=== PATIENT | male | born 1980 | race Caucasian/White ===

== ENCOUNTER 2016-08-21 10:02 | Emergency (ER) | payer OTHER ==
[2015-12-05 06:58] VITALS: BMI 30.8
[~2016-08-21 10:02] MED LIST: ACETAMINOPHEN500 M1 PO; DILAUDID2 MG PO; MELATONIN 3 MG1 TAB PO; MOTRIN600 MG PEG
[2016-08-21 10:30] LABS: BASOPHILS 0.1 % (0-2); EOSINOPHILS 2.2 % (0-7); HEMATOCRIT 48.6 % (42.0-54.0); HEMOGLOBIN 16.1 g/dL (13.5-17.5); IMMATURE GRANULOCYTES 0.3 % (0-5); LYMPHOCYTES 18.9 % (15-50); MCH 28.8 pg (26.0-34.0); MCHC 33.1 g/dL (31.0-37.0); MCV 86.9 fL (80.0-100.0); MEAN PLATELET VOLUME 9.4 fL (7.4-10.4); MONOCYTES 8.6 % (2-11); NEUTROPHILS 69.9 % (40-80); PLATELET COUNT 284 10x3/uL (130-400); RBC 5.59 10x6/uL (4.20-6.10); RDW 14.1 % (11.5-14.5); WBC 9.1 10x3/uL (4.8-10.8)
[2016-08-21 10:53] LABS: ALBUMIN 3.6 g/dL (3.4-5.0); ALKALINE PHOSPHATASE 57 U/L (46-116); ALT (SGPT) 22 U/L (10-68); CALC OSMOLALITY 278 mosm/kg (275-300); CHLORIDE - SERUM 100 mmol/L (98-107); CREATININE - SERUM 0.9 mg/dL (0.6-1.3); GLUCOSE 132 mg/dL (74-106); POTASSIUM - SERUM 3.8 mmol/L (3.5-5.1); PROTEIN - SERUM 7.4 g/dL (6.4-8.2); SODIUM 139 mmol/L (136-145); UREA NITROGEN 10 mg/dL (7-18); eGFR NON AFRICAN AMERICAN > 90 mL/min (90-120)
[2016-08-21 10:54] LABS: AMYLASE - SERUM 30 U/L (25-115); LIPASE 153 U/L (73-393)
[2016-08-21 11:16] LABS: APPEARANCE CLEAR (CLEAR); BILIRUBIN NEGATIVE (NEGATIVE); COLOR YELLOW (YELLOW); GLUCOSE 50 mg/dL (NEGATIVE); KETONE NEGATIVE (NEGATIVE); LEUKOCYTE ESTERASE NEGATIVE (NEGATIVE); NITRITE NEGATIVE (NEGATIVE); PROTEIN NEGATIVE (NEGATIVE); SPECIFIC GRAVITY 1.015 (1.005-1.020); UROBILINOGEN NORMAL (NORMAL)
== END 2016-08-21 11:44 | disposition home or self-care (01) ==
LOC: D.ER 10:02
PROVIDERS: Family Medicine; Nurse Practitioner Family
DX: K52.9 Noninfective gastroenteritis and colitis, unspecified (principal); R10.9 Unspecified abdominal pain

== ENCOUNTER 2016-09-04 08:36 | Emergency (ER) | payer OTHER ==
[2015-12-05 06:58] VITALS: BMI 30.8
[2016-09-04 09:51] LABS: BASOPHILS 0.5 % (0-2); EOSINOPHILS 4.2 % (0-7); HEMATOCRIT 50.2 % (42.0-54.0); HEMOGLOBIN 16.3 g/dL (13.5-17.5); IMMATURE GRANULOCYTES 0.2 % (0-5); LYMPHOCYTES 23.9 % (15-50); MCHC 32.5 g/dL (31.0-37.0); MCV 89.3 fL (80.0-100.0); MEAN PLATELET VOLUME 9.4 fL (7.4-10.4); MONOCYTES 12.5 % (2-11); NEUTROPHILS 58.7 % (40-80); PLATELET COUNT 263 10x3/uL (130-400); RBC 5.62 10x6/uL (4.20-6.10); RDW 14.6 % (11.5-14.5); WBC 8.5 10x3/uL (4.8-10.8)
[2016-09-04 10:17] LABS: ALBUMIN 3.8 g/dL (3.4-5.0); ALKALINE PHOSPHATASE 53 U/L (46-116); ALT (SGPT) 30 U/L (10-68); CALC OSMOLALITY 277 mosm/kg (275-300); CARBON DIOXIDE 32.7 mmol/L (21.0-32.0); CHLORIDE - SERUM 100 mmol/L (98-107); GLUCOSE 93 mg/dL (74-106); POTASSIUM - SERUM 4.1 mmol/L (3.5-5.1); SODIUM 139 mmol/L (136-145); UREA NITROGEN 13 mg/dL (7-18); eGFR NON AFRICAN AMERICAN 89 mL/min (90-120)
== END 2016-09-04 16:56 | disposition short-term general hospital (02) ==
LOC: D.ER 08:36
PROVIDERS: Emergency Medicine
DX: J44.1 Chronic obstructive pulmonary disease with (acute) exacerbation (principal)

== ENCOUNTER 2017-03-22 12:54 | Emergency (ER) | payer OTHER ==
[2015-12-05 06:58] VITALS: BMI 30.8
[2017-03-22 13:40] LABS: BASOPHILS 0.1 % (0-2); EOSINOPHILS 0.8 % (0-7); HEMATOCRIT 50.2 % (42.0-54.0); HEMOGLOBIN 16.6 g/dL (13.5-17.5); IMMATURE GRANULOCYTES 0.3 % (0-5); LYMPHOCYTES 9.3 % (15-50); MCH 29.6 pg (26.0-34.0); MCHC 33.1 g/dL (31.0-37.0); MCV 89.5 fL (80.0-100.0); MEAN PLATELET VOLUME 9.3 fL (7.4-10.4); MONOCYTES 9.1 % (2-11); NEUTROPHILS 80.4 % (40-80); PLATELET COUNT 295 10x3/uL (130-400); RBC 5.61 10x6/uL (4.20-6.10); RDW 13.3 % (11.5-14.5); WBC 14.9 10x3/uL (4.8-10.8)
[2017-03-22 14:08] LABS: ALBUMIN 3.9 g/dL (3.4-5.0); ALKALINE PHOSPHATASE 55 U/L (46-116); ALT (SGPT) 25 U/L (10-68); AMYLASE - SERUM 45 U/L (25-115); BILIRUBIN - TOTAL 0.41 mg/dL (0.2-1.3); CALC OSMOLALITY 278 mosm/kg (275-300); CALCIUM 9.2 mg/dL (8.5-10.1); CARBON DIOXIDE 29.4 mmol/L (21.0-32.0); CHLORIDE - SERUM 102 mmol/L (98-107); GLUCOSE 106 mg/dL (74-106); LIPASE 217 U/L (73-393); POTASSIUM - SERUM 4.5 mmol/L (3.5-5.1); PROTEIN - SERUM 7.3 g/dL (6.4-8.2); SODIUM 139 mmol/L (136-145); UREA NITROGEN 16 mg/dL (7-18); eGFR NON AFRICAN AMERICAN 89 mL/min (90-120)
[2017-03-22 14:42] LABS: APPEARANCE CLEAR (CLEAR); BILIRUBIN NEGATIVE (NEGATIVE); COLOR YELLOW (YELLOW); GLUCOSE NEGATIVE (NEGATIVE); KETONE NEGATIVE (NEGATIVE); NITRITE NEGATIVE (NEGATIVE); PROTEIN NEGATIVE (NEGATIVE); UROBILINOGEN NORMAL (NORMAL)
== END 2017-03-22 16:17 | disposition home or self-care (01) ==
LOC: D.ER 12:54
PROVIDERS: Family Medicine
DX: K52.9 Noninfective gastroenteritis and colitis, unspecified (principal); K50.90 Crohn's disease, unspecified, without complications; F17.200 Nicotine dependence, unspecified, uncomplicated

== ENCOUNTER → 2018-09-13 16:54 | Outpatient (CLI) | payer OTHER ==
[2015-12-05 06:58] VITALS: BMI 30.8
== END | disposition home or self-care (01) ==
LOC: D.LABREF 16:54
PROVIDERS: ATTEND Orthopaedic Surgery
DX: M17.11 Unilateral primary osteoarthritis, right knee (principal); Z11.8 Encounter for screening for other infectious and parasitic diseases

== ENCOUNTER 2018-09-14 11:35 | Inpatient (IN) | payer MEDICARE ==
[~2018-09-14] VITALS: Ht 190.5 cm; Wt 136.4 kg
[2018-10-11] MEDS ORDERED: NEURONTIN 300300 MG PO (15:32)
[2018-10-11] MEDS ORDERED: DICLOFENAC SODI50 MG PO (15:33)
[2018-10-11] MEDS ORDERED: ULTRAM50 MG PO (15:34)
[2018-10-11] MEDS ORDERED: ALBUTEROL SULF8.5 GM INH (15:47)
[2018-10-12 10:49] LABS: BASOPHILS 0.4 % (0-2); EOSINOPHILS 1.6 % (0-7); HEMATOCRIT 47.1 % (42.0-54.0); HEMOGLOBIN 16.1 g/dL (13.5-17.5); IMMATURE GRANULOCYTES 0.6 % (0-5); MCH 30.1 pg (26.0-34.0); MCHC 34.2 g/dL (31.0-37.0); MCV 88.2 fL (80.0-100.0); MEAN PLATELET VOLUME 9.2 fL (7.4-10.4); MONOCYTES 11.4 % (2-11); PLATELET COUNT 275 10x3/uL (130-400); RBC 5.34 10x6/uL (4.20-6.10); RDW 13.1 % (11.5-14.5); WBC 8.3 10x3/uL (4.8-10.8)
[2018-10-12 11:08] LABS: CALC OSMOLALITY 278 mosm/kg (275-300); CALCIUM 9.2 mg/dL (8.5-10.1); CARBON DIOXIDE 30.3 mmol/L (21.0-32.0); CHLORIDE - SERUM 103 mmol/L (98-107); CREATININE - SERUM 0.9 mg/dL (0.6-1.3); GLUCOSE 93 mg/dL (74-106); POTASSIUM - SERUM 4.6 mmol/L (3.5-5.1); SODIUM 139 mmol/L (136-145); UREA NITROGEN 15 mg/dL (7-18); eGFR NON AFRICAN AMERICAN > 90 mL/min (90-120)
[2018-10-12 11:11] LABS: APPEARANCE HAZY (CLEAR); BILIRUBIN NEGATIVE (NEGATIVE); COLOR YELLOW (YELLOW); GLUCOSE 250 mg/dL (NEGATIVE); KETONE NEGATIVE (NEGATIVE); NITRITE NEGATIVE (NEGATIVE); PROTEIN NEGATIVE (NEGATIVE); SPECIFIC GRAVITY 1.025 (1.005-1.020); UROBILINOGEN NORMAL (NORMAL)
[2018-10-12 11:19] LABS: APTT 28.1 SECONDS (22.8-39.4); INR 0.97 (0.85-1.17); PROTIME 12.4 SECONDS (11.6-15.0)
[2018-10-17 06:25] VITALS: BP 117/80; BMI 37.5
--- NOTE | 2018-10-17 10:44 | NUR ---
I ASKED PT IF HE WEARS A CPAP AT HOME HE SAYS "NO I JUST WEAR OXYGEN AT 4L WHEN I SLEEP". I UPED PT OXYGEN TO 4L PER NC AT THIS TIME. WILL CONTINUE TO MONTIOR PT OXYGEN
--- NOTE | 2018-10-17 11:06 | NUR ---
TALKED WITH PT ABOUT DEEP BREATHING BECASUE HIS OXYGEN SATURATION IS LOWER THEN WHAT WE LIKE TO HAVE IT. PT VOICED "O MY OXYGEN IS ALWASY LOW, ITS USUALLY IN THE 80'S AT HOME EVEN ON OXYGEN". WILL CONTINUE TO WATCH AND MONITOR PT. HE IS SITTING UP AND TALKING WHOLE CONVERSTAIONS AND IS A&OX4.
--- NOTE | 2018-10-17 11:30 | NUR ---
REC'D TO ROOM 2238 AWAKE AND ALERT. RESP EVEN AND UNLABORED WITH NO DISTRESS NOTED. HAS O2 IN USE VIA N/C @ 5 L/M. DENIES ANY PAIN OR DISCOMFORT AT THIS TIME. CAN VOICE NEEDS AND WANTS WITH NONE VOICE. NITHIN WRAP CLEAN DRY AND INTACT TO RIGHT KNEE. MOTHER AT BEDSIDE. C/L IN REACH.
[2018-10-17 11:39] VITALS: BP 120/76
[2018-10-17 12:18] VITALS: BP 104/56
--- NOTE | 2018-10-17 15:05 | NUR ---
C/O PAIN RATING 9/10 ON PAIN SCALE TO RIGHT KNEE CRYPTOGRAPHY TEACHER STARTED AT THIS TIME. C/L IN REACH AT BEDSIDE.
[2018-10-17 15:53] VITALS: BP 104/56
--- NOTE | 2018-10-17 17:08 | NUR ---
I have reviewed this patient and I concur with the Shift Assessment completed by the Licensed Practical Nurse today this shift.
--- NOTE | 2018-10-17 19:50 | NUR ---
PATIENT LAYING IN BED. PATIENT HAS CPM ON AND IS SET TO COME OFF OF IT AT 2200. PATIENT HAS NO COMPLAINTS AT THIS TIME. NO DISTRESS NOTED.
[2018-10-17 20:00] VITALS: BP 110/68
--- NOTE | 2018-10-18 01:59 | NUR ---
PATIENT LAYING IN BED, EYES CLOSED, CHEST RISING AND FALLING. NO DISTRESS NOTED.
--- NOTE | 2018-10-18 04:34 | NUR ---
I have reviewed this patient and I concur with the Shift Assessment completed by the Licensed Practical Nurse today this shift.
[2018-10-18 05:31] VITALS: BP 110/68; Ht 190.5 cm; Wt 136.4 kg
--- NOTE | 2018-10-18 05:55 | NUR ---
PATIENT SITTING UP IN BED. NO COMPLAINTS AT THIS TIME. NO DISTRESS NOTED.
[2018-10-18 06:33] VITALS: BP 118/70
[2018-10-18 06:49] LABS: HEMATOCRIT 41.9 % (42.0-54.0); HEMOGLOBIN 14.2 g/dL (13.5-17.5); MCH 29.9 pg (26.0-34.0); MCHC 33.9 g/dL (31.0-37.0); MCV 88.2 fL (80.0-100.0); MEAN PLATELET VOLUME 9.4 fL (7.4-10.4); RBC 4.75 10x6/uL (4.20-6.10); WBC 13.1 10x3/uL (4.8-10.8)
--- NOTE | 2018-10-18 07:39 | NUR ---
SITTING IN BED WITH CPM MACHINE IN PLACE. STATES HAS ABOUT AN HOUR LEFT ON CPM MACHINE. ALERT AND ORIENTED X 3. LUNGS CLEAR BILATERALLY IN ALL CARLISLE. HEART SOUNDS S1 AND S2 HEARD IN ALL CARLISLE. BOWEL SOUNDS ACTIVE X 4. SKIN INTACT WITHOUT REDNESS. INCISION TO RIGHT KNEE COVERED WITH DRSG AND NITHIN BANDAGE C/D/I. [address] AT 5L. DENIES PAIN. DENIES NEEDS. BED LOW. CALL PENA AND PERSONAL ITEMS IN REACH. WILL CONTINUE TO MONITOR.
[2018-10-18 08:14] VITALS: BP 115/62
--- NOTE | 2018-10-18 10:39 | NUR ---
SITTING IN CHAIR AT BEDSIDE PER PT. DENIES NEEDS. DENIES PAIN. WILL CONTINUE TO MONITOR.
[2018-10-18 11:46] VITALS: BP 105/61
--- NOTE | 2018-10-18 14:21 | NUR ---
SITTING IN CHAIR AT BEDSIDE. DENIES NEEDS.
--- NOTE | 2018-10-18 14:30 | MORECARE ---
CASE MANAGEMENT DISCHARGE SUMMARY PATIENT: CARLITOS MARIE UNIT: [id number] ADM DATE: 10/17/18 AGE: 38 : 79 SEX: M ROOM/BED: D.2238 AUTHOR: LEW WALDROP PHYSICIAN: REFERRING PHYSICIAN: AVNI KENDRICK MD DATE OF SERVICE: 10/18/18 Discharge Plan Patient Name: CARLITOS MARIE Facility: [facility]:[place] : 1980 Planned Disposition: Inpatient Rehab Anticipated Discharge Date: Discharge Date: Expected LOS: Initial Reviewer: [email or web address] Initial Review Date: 10/17/2018 Generated: 10/18/18 3:30 pm Patient Name: CARLITOS MARIE Page [id number] at 1430 All edits/amendments must be made on the electronic document DICTATION DATE: 10/18/18 1430 BELLMAN CAPTAIN: NITIN 10/18/18 1430 RPT#: [id number] DC DATE: STATUS: ADM IN [facility] [address] [place] [address] END OF REPORT
--- NOTE | 2018-10-18 14:38 | MORECARE ---
CASE MANAGEMENT DISCHARGE SUMMARY PATIENT: CARLITOS MARIE UNIT: [id number] ADM DATE: 10/17/18 AGE: 38 : 78 SEX: M ROOM/BED: D.2238 AUTHOR: BENJIE,DOC PHYSICIAN: REFERRING PHYSICIAN: AVNI KENDRICK MD DATE OF SERVICE: 10/18/18 Discharge Plan Patient Name: CARLITOS MARIE Facility: [facility]:[place] : 1980 Planned Disposition: Inpatient Rehab Anticipated Discharge Date: Discharge Date: Expected LOS: Initial Reviewer: [email or web address] Initial Review Date: 10/17/2018 Generated: 10/18/18 3:38 pm Comments DCP- Discharge Planning Updated by [email or web address]: Trudi Peña on 10/18/18 1:[address] Patient Name: CARLITOS MARIE Admission Status: Elective Accout number: [id number] Admission Date: 10-17-2018 : 1980 Admission Diagnosis: Attending: AVNI KENDRICK Current LOS: 1 Anticipated DC Date: Planned Disposition: Inpatient Rehab Primary Insurance: MEDICARE PART A ONLY Discharge Planning Comments: CM met with patient to complete initial dc planning assessment. CM educated patient on the CM role and verbal consent given by patient to complete assessment. Patient lives at home with his mother where he is independent with his care. At discharge patient would like to go to inpatient rehab at [facility] and feels this is a safe discharge. Patient sees the [facility] and has Home O2 that he wears at night through them. Referral sent to [facility] inpatient rehab and Angelita came up and assessed the patient. Will wait for auth, anticipate DC tomorrow if accepted and stable. Patient denied known discharge needs at this time. CM will continue to follow and will assist as needed with dc plans/needs. Grounds Manager: Trudi Peña DCPIA - Discharge Planning Initial Assessment Updated by [email or web address]: Trudi Peña on 10/18/18 2:31 pm * Is the patient Alert and Oriented? Yes * How many steps to enter\exit or inside your home? RAMP * PCP [facility]- [place] * Pharmacy [address] * Preadmission Environment Home with Family * ADLs Independent * Equipment Oxygen * List name and contact numbers for known caregivers / representatives who currently or will assist patient after discharge: TRINA (MOTHER) [phone] * Verbal permission to speak to the caregivers and representatives has been obtained from the patient. Yes * Community resources currently utilized None * Additional services required to return to the preadmission environment? Yes * Can the patient safely return to the preadmission environment? No * Has this patient been hospitalized within the prior 30 days at any hospital? No Last DP export: 10/18/18 1:30 p Patient Name: CARLITOS MARIE Page [phone] at 1438 All edits/amendments must be made on the electronic document DICTATION DATE: 10/18/181436 DITCH REPAIRER: NITIN 10/18/181436 RPT#: [id number] DC DATE: STATUS: ADM IN [facility] [address] [place] [address] END OF REPORT
--- NOTE | 2018-10-18 15:00 | OP ---
PATIENT NAME: CARLITOS MRAIE MEDICAL RECORD: [id number] :[birth year] LOCATION:D.MS [id number] ADMISSION DATE:10/17/18 SURGEON: AVNI KENDRICK MD DATE OF OPERATION: 10/17/2018 PREOPERATIVE DIAGNOSIS: Posttraumatic arthritis of the right knee. POSTOPERATIVE DIAGNOSIS: Posttraumatic arthritis of the right knee. PROCEDURE: Right total knee arthroplasty. SURGEON: Avni Kendrick MD ASSEMBLER CARDS AND ANNOUNCEMENTS: Jacqueline. INTRAOPERATIVE COMPLICATIONS: None. 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 The patient did have an ACL reconstruction and it worked to stabilize him. However, he did develop further posttraumatic osteoarthritis as was explained to him prior to his ACL reconstruction. Fortunately, the patient's patellofemoral joint was excellent and he had excellent bone at 38 for press fit arthroplasty. OPERATIVE SUMMARY IN DETAIL: After obtaining the appropriate preoperative orthopedic surgery consent as well as anesthetic consultation, evaluation and clearance, the patient was brought to the operating room and placed on the operating table in supine position. After general laryngeal mask airway was administered, tourniquet was placed on the proximal aspect of the right lower extremity. Right lower extremity was then prepped and draped in routine sterile fashion. The leg was elevated and exsanguinated. Tourniquet was inflated to 350 mmHg. At this point, a timeout was taken and agreed upon by all. A midline incision was taken down for paramedian arthrotomy. Paramedian arthrotomy was undertaken. The patella was everted, distal femur was exposed. The toe was evaluated and found to be pristine. Soft tissue excision was then followed by creation of intramedullary guide hole for intramedullary guided distal femoral cuts. Distal femur was cut and the proximal tibia exposed. Proximal tibia was likewise cut using intramedullary guidance. Measurements were taken. Distal chamfer cuts were taken. Trial was put into place and taken through range of motion and found to be stable in all planes. Distal femoral preparations were followed by proximal tibial preparations. Wound was copiously irrigated. The proximal tibia and distal femur were put in place with excellent fit for the press-fit. A size 11 polyethylene was placed with a #6 femur, 6 tibial baseplate. This was taken through a range of motion again found to be stable in all planes. Wound was copiously irrigated and filled with a gram of vancomycin and a gram of tobramycin. Paramedian arthrotomy was closed with #2 Ethibond by Niko Phillips along with skin closure #1 Vicryl, 2-0 Vicryl, and skin herbert again by Niko Phillips. Sterile dressings were applied. The patient was awakened and taken to the recovery room in stable condition. All final needle and sponge counts were correct. TRANSINT:[id number] Voice Confirmation ID: [id number] DOCUMENT ID: [id number] OPERATIVE REPORT [id number] CARLITOS MARIE MD, AVNI JEFFRIES at 1500 CC: [id number] DICTATION DATE: 10/18/18931 LIVING COACH: 10/18/18 1104 ADM IN [place] [id number] [place] [id number]
--- NOTE | 2018-10-18 16:52 | NUR ---
SITTING IN BED. DENIES NEEDS. WILL CONTINUE TO MONITOR.
[2018-10-18 17:00] VITALS: BP 139/70
--- NOTE | 2018-10-18 18:25 | NUR ---
PLACED ON CPM. REQUESTED AND GIVEN PRN TORADOL.
[2018-10-18 20:00] VITALS: BP 121/62
--- NOTE | 2018-10-18 21:07 | NUR ---
LYING QUEITLY WITH NO DISTRESS NOTED. CPM IN PROGRESS AT THIS TIME. NITHIN WRAP TO RIGHT KNEE WIHTOUT DRAINAGE NOTED. SL TO LFA WITHOUT REDNESS OR EDEMA CL IN REACH
--- NOTE | 2018-10-19 03:57 | NUR ---
I have reviewed this patient and I concur with the Shift Assessment completed by the Licensed Practical Nurse today this shift.
[2018-10-19 04:00] VITALS: BP 165/58
[2018-10-19 05:41] LABS: HEMATOCRIT 41.3 % (42.0-54.0); HEMOGLOBIN 13.7 g/dL (13.5-17.5); MCH 29.4 pg (26.0-34.0); MCHC 33.2 g/dL (31.0-37.0); MCV 88.6 fL (80.0-100.0); MEAN PLATELET VOLUME 9.3 fL (7.4-10.4); RBC 4.66 10x6/uL (4.20-6.10); RDW 13.5 % (11.5-14.5); WBC 11.4 10x3/uL (4.8-10.8)
--- NOTE | 2018-10-19 08:04 | NUR ---
RESTING IN BED USING CPM. ALERT AND ORIENTED X 3. LUNGS CLEAR BILATERALLY IN ALL CARLISLE. HEART SOUNDS S1 AND S2 HEARD IN ALL CARLISLE. BOWEL SOUNDS ACTIVE X 4. DRSG IN PLACE TO RIGHT KNEE C/D/I. SKIN OTHERWISE INTACT WITHOUT REDNESS. DENIES NEEDS. BED LOW. CALL PENA AND PERSONAL ITEMS IN REACH. WILL CONTINUE TO MONITOR.
[2018-10-19] MEDS ORDERED: ELIQUIS2.5 MG PO (09:03)
[2018-10-19] MEDS ORDERED: DILAUDID2 MG PO (09:05)
[2018-10-19 09:12] VITALS: BP 116/68
--- NOTE | 2018-10-19 09:33 | MORECARE ---
CASE MANAGEMENT DISCHARGE SUMMARY PATIENT: CARLITOS MARIE UNIT: [id number] ADM DATE: 10/17/18 AGE: 38 : 78 SEX: M ROOM/BED: D.2238 AUTHOR: BENJIE,DOC PHYSICIAN: REFERRING PHYSICIAN: AVNI KENDRICK MD DATE OF SERVICE: 10/19/18 Discharge Plan Patient Name: CARLITOS MARIE Facility: [facility]:[place] : 1980 Planned Disposition: Inpatient Rehab Anticipated Discharge Date: Discharge Date: Expected LOS: Initial Reviewer: [email or web address] Initial Review Date: 10/17/2018 Generated: 10/19/18 10:33 am Comments DCP- Discharge Planning Updated by [email or web address]: Anitha Strange on 10/19/18 8:[address] I have faxed an update including comorbidities to [facility] and spoke to Mera, she will let Angelita know. I have informed her that he is ready for discharge. CM will continue to follow and assist with discharge planning/needs. DCP- Discharge Planning Updated by [id number]: Trudi Peña on 10/18/18 1:[address] Patient Name: CARLITOS MARIE Admission Status: Elective Accout number: [id number] Admission Date: 10-17-2018 : 1980 Admission Diagnosis: Attending: AVNI KENDRICK Current LOS: 1 Anticipated DC Date: Planned Disposition: Inpatient Rehab Primary Insurance: MEDICARE PART A ONLY Discharge Planning Comments: CM met with patient to complete initial dc planning assessment. CM educated patient on the CM role and verbal consent given by patient to complete assessment. Patient lives at home with his mother where he is independent with his care. At discharge patient would like to go to inpatient rehab at [facility] and feels this is a safe discharge. [facility] them. Referral sent to [facility] inpatient rehab and Angelita came up and assessed the patient. Will wait for auth, anticipate DC tomorrow if accepted and stable. Patient denied known discharge needs at this time. CM will continue to follow and will assist as needed with dc plans/needs. Keyliner: Trudi Peña DCPIA - Discharge Planning Initial Assessment Updated by [email or web address]: Trudi Peña on 10/18/18 2:31 pm * Is the patient Alert and Oriented? Yes * How many steps to enter\exit or inside your home? RAMP * PCP [facility] * Pharmacy [address] * Preadmission Environment Home with Family * ADLs Independent * Equipment Oxygen * List name and contact numbers for known caregivers / representatives who currently or will assist patient after discharge: TRINA (MOTHER) [phone] * Verbal permission to speak to the caregivers and representatives has been obtained from the patient. Yes * Community resources currently utilized None * Additional services required to return to the preadmission environment? Yes * Can the patient safely return to the preadmission environment? No * Has this patient been hospitalized within the prior 30 days at any hospital? No External Providers External Provider: [facility] Contact Date: Service Request Date: Service Type: Resolution: Reviewer: Comments: Last DP export: 10/18/18 1:38 p Patient Name: CARLITOS MARIE Page [phone] at 0933 All edits/amendments must be made on the electronic document DICTATION DATE: 10/19/18932 TRANSIT MIXER DRIVER: NITIN 10/19/18932 RPT#: [id number] DC DATE: STATUS: ADM IN [facility] [address] [place] [address] END OF REPORT
[2018-10-19 12:09] VITALS: BP 128/70
--- NOTE | 2018-10-19 13:26 | NUR ---
SITTING IN CHAIR AT BEDSIDE. DENIES NEEDS. WILL CONTINUE TO MONITOR.
--- NOTE | 2018-10-19 14:12 | NUR ---
REQUESTED AND GIVEN ICE PACKS FOR LEG.
--- NOTE | 2018-10-19 14:36 | MORECARE ---
CASE MANAGEMENT DISCHARGE SUMMARY PATIENT: CARLITOS MARIE UNIT: [id number] ADM DATE: 10/17/18 AGE: 38 : [birth year] SEX: M ROOM/BED: D.2238 AUTHOR: BENJIE,LEW PHYSICIAN: REFERRING PHYSICIAN: AVNI KENDRICK MD DATE OF SERVICE: 10/19/18 Discharge Plan Patient Name: CARLITOS MARIE Facility: [facility]:[place] : 1980 Planned Disposition: Inpatient Rehab Anticipated Discharge Date: Discharge Date: Expected LOS: Initial Reviewer: [email or web address] Initial Review Date: 10/17/2018 Generated: 10/19/18 3:36 pm Comments DCP- Discharge Planning Updated by [email or web address]: Anitha Krishnamurthyyimi on 10/19/18 1:[address] Mera from [facility] states that patient has been accepted and will pick him up between 3:30 and 4. I have informed patient and his mom (she is in the room). I informed talent coordinator (Francia) and primary nurse (Kim). Discharging today to [facility] inpatient rehab. DCP- Discharge Planning Updated by [email or web address]: Anitha Alexandr on 10/19/18 8:[address] I have faxed an update including comorbidities to [facility] and spoke to Mera, she will let Angelita know. I have informed her that he is ready for discharge. CM will continue to follow and assist with discharge planning/needs. DCP- Discharge Planning Updated by [email or web address]: Trudi Peña on 10/18/18 1:[address] Patient Name: CARLITOS MARIE Admission Status: Elective Accout number: [id number] Admission Date: 10-17-2018 : 1980 Admission Diagnosis: Attending: AVNI KENDRICK Current LOS: 1 Anticipated DC Date: Planned Disposition: Inpatient Rehab Primary Insurance: MEDICARE PART A ONLY Discharge Planning Comments: CM met with patient to complete initial dc planning assessment. CM educated patient on the CM role and verbal consent given by patient to complete assessment. Patient lives at home with his mother where he is independent with his care. At discharge patient would like to go to inpatient rehab at [facility] and feels this is a safe discharge. [facility] at [facility] through them. Referral sent to [facility] inpatient rehab and Angelita came up and assessed the patient. Will wait for auth, anticipate DC tomorrow if accepted and stable. Patient denied known discharge needs at this time. CM will continue to follow and will assist as needed with dc plans/needs. Hospice Care Transitions Coordinator: Trudi Peña DCPIA - Discharge Planning Initial Assessment Updated by [email or web address]: Trudi Peña on 10/18/18 2:31 pm * Is the patient Alert and Oriented? Yes * How many steps to enter\exit or inside your home? RAMP * PCP [facility]- [place] * Pharmacy [address] * Preadmission Environment Home with Family * ADLs Independent * Equipment Oxygen * List name and contact numbers for known caregivers / representatives who currently or will assist patient after discharge: TRINA (MOTHER) [phone] * Verbal permission to speak to the caregivers and representatives has been obtained from the patient. Yes * Community resources currently utilized None * Additional services required to return to the preadmission environment? Yes * Can the patient safely return to the preadmission environment? No * Has this patient been hospitalized within the prior 30 days at any hospital? No Last DP export: 10/19/18 8:33 a Patient Name: CARLITOS MARIE Page 10344 at 1436 All edits/amendments must be made on the electronic document DICTATION DATE: 10/19/18 143 FOREIGN CAR MECHANIC: NITIN 10/19/18 1435 RPT#: [id number] DC DATE: STATUS: ADM IN [facility] [address] [place] [address] END OF REPORT
--- NOTE | 2018-10-19 14:52 | NUR ---
DISCHARGE EDUCATION PROVIDED BOTH WRITTEN AND VERBAL. PATIENT AND MOM AT BEDSIDE VERBALIZED UNDERSTANDING. DENIES FURTHER QUESTIONS. NEW DRSG GIVEN FOR KNEE DRSG CHANGE IN 7 DAYS. IV REMOVED FROM LEFT HAND WITH TIP INTACT. DENIES FURTHER NEEDS. WILL DISCHARGE TO [facility] WHEN TRANSPORT ARRIVES.
--- NOTE | 2018-10-19 15:34 | NUR ---
REPORT CALLED TO NURSE AT [facility].
--- NOTE | 2018-10-19 17:53 | NUR ---
OT NOTE: PT COMPLETED SIT TO STAND WITH SBA. PT COMPLETED ADL MOB WITH SBA. PT COMPLETED TOILETING TASKS WITH SBA. PT COMPLETED HYGIENE TASKS WITH SBA. THANK YOU, MERCEDEZ CARUSO
--- NOTE | 2018-10-20 17:17 | MORECARE ---
CASE MANAGEMENT DISCHARGE SUMMARY PATIENT: CARLITOS MARIE UNIT: [id number] ADM DATE: 10/17/18 AGE: 38 : 78 SEX: M ROOM/BED: D.2238 AUTHOR: BENJIE,DOC PHYSICIAN: REFERRING PHYSICIAN: AVNI KENDRICK MD DATE OF SERVICE: 10/20/18 Discharge Plan Patient Name: CARLITOS MARIE Facility: [facility]:[place] : 1980 Planned Disposition: Inpatient Rehab Anticipated Discharge Date: Discharge Date: 10/19/2018 Expected LOS: 0 Initial Reviewer: [email or web address] Initial Review Date: 10/17/2018 Generated: 10/20/18 6:17 pm Comments DCP- Discharge Planning Updated by [email or web address]: Anitha Krishnamurthyyimi on 10/19/18 1:[address] Mera from [facility] states that patient has been accepted and will pick him up between 3:30 and 4. I have informed patient and his mom (she is in the room). I informed gravity flow irrigator (Francia) and primary nurse (Kim). Discharging today to [facility] inpatient rehab. DCP- Discharge Planning Updated by [email or web address]: Anitha Alexandr on 10/19/18 8:[address] I have faxed an update including comorbidities to [facility] and spoke to Mera, she will let Angelita know. I have informed her that he is ready for discharge. CM will continue to follow and assist with discharge planning/needs. DCP- Discharge Planning Updated by [email or web address]: Trudi Peña on 10/18/18 1:[address] Patient Name: CARLITOS MARIE Admission Status: Elective Accout number: [id number] Admission Date: 10-17-2018 : 1980 Admission Diagnosis: Attending: AVNI KENDRICK Current LOS: 1 Anticipated DC Date: Planned Disposition: Inpatient Rehab Primary Insurance: MEDICARE PART A ONLY Discharge Planning Comments: CM met with patient to complete initial dc planning assessment. CM educated patient on the CM role and verbal consent given by patient to complete assessment. Patient lives at home with his mother where he is independent with his care. At discharge patient would like to go to inpatient rehab at [facility] and feels this is a safe discharge. [facility] through them. Referral sent to [facility] inpatient rehab and Angelita came up and assessed the patient. Will wait for auth, anticipate DC tomorrow if accepted and stable. Patient denied known discharge needs at this time. CM will continue to follow and will assist as needed with dc plans/needs. Baseball Club Manager: Trudi Peña DCPIA - Discharge Planning Initial Assessment Updated by [email or web address]: Trudi Peña on 10/18/18 2:31 pm * Is the patient Alert and Oriented? Yes * How many steps to enter\exit or inside your home? RAMP * PCP [facility]- [place] * Pharmacy [address] * Preadmission Environment Home with Family * ADLs Independent * Equipment Oxygen * List name and contact numbers for known caregivers / representatives who currently or will assist patient after discharge: TRINA (MOTHER) [phone] * Verbal permission to speak to the caregivers and representatives has been obtained from the patient. Yes * Community resources currently utilized None * Additional services required to return to the preadmission environment? Yes * Can the patient safely return to the preadmission environment? No * Has this patient been hospitalized within the prior 30 days at any hospital? No Last DP export: 10/19/18 1:36 p Patient Name: CARLITOS MARIE Page [phone] at 1717 All edits/amendments must be made on the electronic document DICTATION DATE: 10/20/181715 GRADE FOREMAN: NITIN 10/20/181715 RPT#: [id number] DC DATE:10/19/18 STATUS: DIS IN [facility] [address] [place] [address] END OF REPORT
== END 2018-10-19 17:02 | DRG 470 ==
LOC: D.SDCHOLD 10-17 05:00 → D.MS 10-17 05:00 → D.SDCHOLD 10-17 07:30 → D.MS 10-17 11:25
PROVIDERS: ADMIT Orthopaedic Surgery; ATTEND Orthopaedic Surgery
PROC: 0SRC06A Replacement of Right Knee Joint with Oxidized Zirconium on Polyethylene Synthetic Substitute, Uncemented, Open Approach (ICD-10-PCS; principal; 2018-10-17 07:30)
DX: M17.31 Unilateral post-traumatic osteoarthritis, right knee (principal); E66.9 Obesity, unspecified; Z68.30 Body mass index [BMI] 30.0-30.9, adult; J45.909 Unspecified asthma, uncomplicated; G47.30 Sleep apnea, unspecified; Z87.820 Personal history of traumatic brain injury; Z72.0 Tobacco use

== ENCOUNTER 2018-10-11 08:00 | Outpatient (CLI) | payer MEDICARE ==
[2018-10-11] MEDS ORDERED: NEURONTIN 300300 MG PO (15:32)
[2018-10-11] MEDS ORDERED: DICLOFENAC SODI50 MG PO (15:33)
[2018-10-11] MEDS ORDERED: ULTRAM50 MG PO (15:34)
[2018-10-11] MEDS ORDERED: ALBUTEROL SULF8.5 GM INH (15:47)
[2018-10-18 05:31] VITALS: BMI 37.5
== END 2018-10-11 08:01 | disposition home or self-care (01) ==
LOC: D.OPS 08:00
PROVIDERS: ATTEND Orthopaedic Surgery
DX: M17.31 Unilateral post-traumatic osteoarthritis, right knee (principal); E66.9 Obesity, unspecified; Z68.30 Body mass index [BMI] 30.0-30.9, adult